=== PATIENT | female | born 1965 | race Caucasian/White ===

== ENCOUNTER → 2019-08-10 16:13 | Outpatient (CLI) | payer OTHER, SELFPAY ==
[2016-12-22 11:32] VITALS: BMI 22.8
[2019-08-10 18:50] LABS: CRP 5.68 mg/L (0.0-3.0)
[2019-08-12 16:07] LABS: Endomysial Antibody IgA Negative (Negative)
[2019-08-12 21:28] LABS: Immunoglobulin A 172 mg/dL (87-352); t-Transglutaminase IgA <2 U/mL (0-3)
== END ==
PROVIDERS: PCP Student in an Organized Health Care Education/Training Program; Referring Provider Internal Medicine Gastroenterology; Visit Provider Internal Medicine Gastroenterology
DX: R19.7 Diarrhea, unspecified (principal)
CPT/HCPCS: 36415; 82784; 83516; 86140; 86255

== ENCOUNTER 2022-01-25 02:11 | Emergency (ER) | payer OTHER, SELFPAY ==
[2022-01-25 02:11] VITALS: BP 123/96; PULSE 61; RESP 16; TEMP 36.3; O2SAT 98; BMI 20.9
--- NOTE | 2022-01-25 02:45 | EDS_ITS ---
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 No loss of consciousness no neck pain. She also tore one of her nails off. No back pain. No abdominal pain or pelvis pain or any other extremity injury. [facility] Medical History Menieres disease Home Medications esterified estrogens-methyltestosterone 0.625 mg-1.25 mg tablet 1 tab PO DAILY 12/22/16 [History Last Taken Unknown] hydrochlorothiazide 25 mg tablet 25 mg PO DAILY 12/22/16 [History Last Taken Unknown] naproxen 500 mg tablet 500 mg PO BID PRN ##20 12/22/16 [Rx Last Taken Unknown] Allergy/AdvReac Type Severity Reaction Status Date / Time No Known Allergies Allergy Verified 12/22/16 11:30 Social History Smoking Status: Never smoker ROS ROS ED ROS Narrative Social: Noncontributory Medications: Reviewed Past medical history: Reviewed Review of systems General: Patient has no head injury or loss of consciousness HEENT: Chin laceration Neck: No neck pain Cardiovascular: Patient denies any chest pain or palpitations Chest wall: No chest wall contusions Respiratory: There is no shortness of breath GI: There is no nausea vomiting diarrhea or abdominal pain, no abdominal wall contusions Skin: No lacerations or abrasions Neurological: Patient has no memory loss, confusion, or any focal weakness Psychiatric: No recent behavioral changes Back: No back pain, no problems with ambulation Musculoskeletal: Nail injury All other systems are reviewed and normal EXAM Physical Exam Narrative Exam Narrative: Physical exam Vitals reviewed General: Does not appear in significant distress HEENT: 2.5 cm chin laceration Head: No head injury Eyes: Extraocular movements intact Neck: No C-spine tenderness with full range of motion Heart: Regular rate normal pulses Chest wall: No chest wall pain Lungs clear lungs bilaterally with normal inspiration and expiration without tachypnea GI: Abdomen is soft and nontender there is no mass no guarding no abdominal wall contusion : Stable pelvis Musculoskeletal: Moves all extremities without any signs of trauma. She does have an avulsion of the nail nailbed is intact Skin: No abrasions or laceration Neurological: Patient is alert and oriented with no focal deficits Const Vital Signs: 01/25/22 02:11 01/25/22 02:14 Temperature 97.4 F L Temperature Source Temporal Pulse Rate 61 Respiratory Rate 16 Respiratory Effort Normal Non-Labored Respiratory Depth Normal Respiratory Pattern Normal Blood Pressure 123/96 H Blood Pressure Mean 105 Pulse Ox 98 Oxygen Delivery Method Room Air Room Air MDM MDM MDM Narrative Medical decision making narrative: Return in stable condition. As far as the nail is we will address it I told her after about a week or so she can use a fake nail as long as she does not fluid and she could just tape it. Otherwise there is no nailbed repair needed. Procedures Lacerations Chin laceration: Length: 0.98 in Depth: Skin Prep: Sterile Conditions Laceration repair: Debrideded and Local (1% lidocaine) Number of Sutures/[place]: 5 Suture Information: Ethilon and Simple Discharge Plan Triage Chief Complaint: Fall ED Provider: Wil Pena Dx/Rx/DC Orders Clinical Impression: Chin laceration, Avulsed fingernail Prescriptions: No Action estrogens-methyltestosterone 1 EACH tablet 1 tab PO DAILY Label Comments: TAKE 1 TABLET BY MOUTH DAILY hydrochlorothiazide 25 MG tablet 25 mg PO DAILY Label Comments: TAKE 1 TABLET BY MOUTH ONCE A DAY naproxen 500 MG tablet 500 mg PO BID PRN Qty: 20 0RF Primary Care Provider: Morgan Skelton Referrals: Morgan Skelton DO [Primary Care Provider] - 5 Days for suture removal Disposition Disposition: Home, Self Care
[2022-01-25] MEDS: Lidocaine 1% (20 ml mdv) 20 ML Vial INFILT (03:01)
== END 2022-01-25 03:02 | disposition home or self-care (01) ==
PROVIDERS: Emergency Provider Emergency Medicine; PCP Internal Medicine; Visit Provider Emergency Medicine
DX: S01.81XA Laceration without foreign body of other part of head, initial encounter (principal); W19.XXXA Unspecified fall, initial encounter; H81.09 Meniere's disease, unspecified ear
CPT/HCPCS: 12011; 99281; 99282

== ENCOUNTER → 2022-11-06 | Outpatient (CLI) | payer OTHER, SELFPAY | END | disposition home or self-care (01) | PROVIDERS: PCP Internal Medicine; Referring Provider Ophthalmology; Visit Provider Ophthalmology | DX: H04.123 Dry eye syndrome of bilateral lacrimal glands (principal) | CPT/HCPCS: 36415 ==

== ENCOUNTER → 2023-02-14 | Outpatient (CLI) | payer OTHER, SELFPAY | END | disposition home or self-care (01) | PROVIDERS: PCP Internal Medicine; Referring Provider Ophthalmology; Visit Provider Ophthalmology | DX: H04.123 Dry eye syndrome of bilateral lacrimal glands (principal) ==

== ENCOUNTER → 2023-07-15 | Outpatient (CLI) | payer SELFPAY ==
[2023-07-15 10:23] LABS: SERUM TEARS COLLECTION SPECIMEN PROCESSED
== END | disposition home or self-care (01) ==
PROVIDERS: PCP Internal Medicine; Referring Provider Ophthalmology; Visit Provider Ophthalmology
DX: Z00.00 Encounter for general adult medical examination without abnormal findings (principal)

== ENCOUNTER → 2023-10-01 | Outpatient (CLI) | payer OTHER, SELFPAY ==
--- NOTE | 2023-10-01 11:52 | BD_ITS ---
STUDY: DUAL ENERGY X-RAY ABSORPTIOMETRY / DXA REASON FOR EXAM: Female, 58 years old. [id number] TECHNIQUE: Bone Mineral Density (BMD) measurements of lumbar spine and bilateral hips were obtained. COMPARISON: None. FINDINGS: Lumbar Spine (L1-L4): g/cm2 (1.106) / T-score (0.5) / Z-score (2.0) Findings are suggestive of normal bone density with a low fracture risk. Left Femur Total: g/cm2 (0.880) / T-score (-0.5) / Z-score (0.5) Left Femoral Neck: g/cm2 (0.700) / T-score (-1.3) / Z-score (0.0) Right Femur Total: g/cm2 (0.906) / T-score (-0.3) / Z-score (0.7) Right Femoral Neck: g/cm2 (0.703) / T-score (-1.3) / Z-score (0.0) BD/Dexa Bone Density Study IMPRESSION: The patient is considered osteopenic as outlined below according to World [employer] Organization (WHO) criteria with a low fracture risk. Reference Information: The T-score is the number of standard deviations above or below the standard which is normal for young adults at their peak bone mineral density. The World Health Organization (WHO) interprets the T-scores as follows: Above -1 Normal bone density Between -1 and -2.5 Osteopenia Equal to / or below -2.5 Osteoporosis As a practical clinical guideline, osteopenia may be graded as follows: Mild -1 through -1.5 Moderate -1.6 through -2.0 Severe -2.1 through -2.4 The Z-score is the number of standard deviations above or below age-matched controls. A Z-score of less than -1.5 would be considered abnormal. References: 1. NIH Osteoporosis and Related Bone Diseases www osteo.org 2. International Society for Clinical Densitometry www iscd.org 3. National Osteoporosis Foundation www nof.org Electronically Signed: Antoni Bailey MD at 14:51 EDT ,
== END | disposition home or self-care (01) ==
LOC: OPBD 11:46
PROVIDERS: PCP Internal Medicine; Referring Provider Internal Medicine; Visit Provider Internal Medicine
DX: Z78.0 Asymptomatic menopausal state (principal)
CPT/HCPCS: 77080

== ENCOUNTER → 2023-12-10 | Outpatient (CLI) | payer OTHER, SELFPAY ==
[2023-12-10 10:04] LABS: SERUM TEARS COLLECTION SPECIMEN PROCESSED
== END | disposition home or self-care (01) ==
LOC: LAB 08:01
PROVIDERS: PCP Internal Medicine; Referring Provider Ophthalmology; Visit Provider Ophthalmology
DX: H04.123 Dry eye syndrome of bilateral lacrimal glands (principal)

== ENCOUNTER → 2025-02-14 | Outpatient (CLI) | payer OTHER, SELFPAY ==
[2025-02-14 10:40] LABS: Red Blood Cells-Urine 0 SEEN /hpf (0-5)
[2025-02-14 10:46] LABS: Hematocrit 44.8 % (37-47); Hemoglobin 14.6 g/dL (12.0-15.0); Immature Granulocytes Count 0.010 X10^3/uL (0.0-0.0); Mean Corp Hgb Conc 32.6 g/dL (32-36); Mean Corpuscular Volume 92.2 fL (81-99); Mean Platelet Vol. 9.9 fl (6.2-12.0); NRBC Flagged by Analyzer 0 % (0-5); Platelet Count 160 K/mm3 (150-450); RBC Distribution Width CV 13.5 % (11.6-14.6); RBC Distribution Width SD 45.9 fl (35.1-43.9); Red Blood Count 4.86 M/mm3 (4.2-5.4); White Blood Count 4.0 K/mm3 (4.4-11.0)
[2025-02-14 11:02] LABS: Color, Urine Yellow (Yellow); Glucose, Dipstick Normal (Normal); Ketone-Dipstick 5 mg/dl (Negative); Leukocyte Esterase-Dipstick 25 /ul (Negative); Nitrite-Dipstick Negative (Negative); Occult Blood-Urine Negative /ul (Negative); Protein-Dipstick 30 mg/dl (Negative); Specific Gravity, Urine 1.020 (1.002-1.030); Urine Bilirubin Dipstick Negative (Negative)
[2025-02-14 11:06] LABS: AST(SGOT) 32 U/L (<=31); Alanine Aminotransfer ALT/SGPT 24 U/L (<=34); Albumin, Serum 4.7 g/dL (3.4-4.8); Alkaline Phosphatase 78 U/L (35-104); Anion Gap 9 (5-15); BUN 16 mg/dL (4-19); BUN/Creat Ratio 21.0 RATIO (10-20); Calcium,Total 10.0 mg/dL (7.6-11.0); Carbon Dioxide 30.3 mmol/L (21.0-32.0); Chloride 104 mmol/L (98-108); Globulin 2.4 g/dL (2.2-4.2); Glucose 89 mg/dL (70-99); Potassium 5.4 mmol/L (3.3-5.1)
[2025-02-14 11:08] LABS: Mucous, Urine 1+ /hpf (<or=2+); Squamous Epithelial Cells - UA 0-5 SEEN /hpf (5-10)
== END | disposition home or self-care (01) ==
LOC: LABSPEC 10:29
PROVIDERS: PCP Internal Medicine; Referring Provider Internal Medicine; Visit Provider Internal Medicine
DX: L50.9 Urticaria, unspecified (principal)
CPT/HCPCS: 80053; 81001; 85025

== ENCOUNTER → 2025-02-18 | Outpatient (CLI) | payer OTHER, SELFPAY ==
[2025-02-18 10:54] LABS: Potassium 4.1 mmol/L (3.3-5.1)
== END | disposition home or self-care (01) ==
LOC: CIMLAB 09:10
PROVIDERS: PCP Internal Medicine; Referring Provider Internal Medicine; Visit Provider Internal Medicine
DX: E87.5 Hyperkalemia (principal)
CPT/HCPCS: 36415; 84132